=== PATIENT | female | born 1980 | race Caucasian/White ===

== ENCOUNTER 2019-10-31 10:57 | Inpatient (IN) | payer OTHER ==
--- NOTE | 2019-10-31 11:26 | PDOC ---
History of Present Illness - General Chief Complaint: Nausea/Vomiting Stated Complaint: FLU Time Seen by Provider: 10/31/19 11:21 History Source: Patient Exam Limitations: No Limitations - History of Present Illness Initial Comments: Marie Mason is an obese 39 yo F w a pmh of gastric bypass surgery who presents to the [facility] er with 12 hours of severe abdominal pain associated with multiple episodes of nausea and vomiting which she describes as green in color. The patient states her last bowel movement was 2 days ago which is abnormal for her as she usually has a bowel movement every day. The patient has not been able to keep anything down in the past 12 hours and whatever she tries to eat she throws up. Patient recently travelled from [place] to [place] yesterday. Denies fevers, chills, chest pain, SOB, difficulty breathing, diarhea, dysuria, frequency, urgency, back pain LMP: 2 weeks ago Recent travel: Travelled from [place] in the past 2 days. PCP: in [place] PSH: Gastric bypass Social Hx: Denies smoking, drinking, or other substance abuse Allergies: hydromorphone Past History - Past Medical History Allergies/Adverse Reactions: Allergies Allergy/AdvReac Type Severity Reaction Status Date / Time hydromorphone [From Dilaudid] Allergy Verified 10/31/19 11:38 Home Medications: Ambulatory Orders Fluoxetine HCl [Prozac] 40 mg PO DAILY 10/31/19 Levothyroxine Sodium 1 tab PO DAILY 10/31/19 Review of Systems - Review of Systems Able to Perform ROS?: Yes Comments:: CONSTITUTIONAL: Absent: fever, no chills, no fatigue EYES: Absent: visual changes ENT: Absent: ear pain, no sore throat CARDIOVASCULAR: Absent: chest pain, no palpitations RESPIRATORY: Absent: cough, no SOB GI: Present: Abdominal pain, nausea, vomiting Absent: no constipation, no diarrhea GENITOURINARY: Absent: dysuria, no frequency, no hematuria MUSKULOSKELETAL: Absent: back pain, no arthralgia, no myalgia SKIN: Absent: rash NEURO: Absent: headache *Physical Exam - Physical Exam GENERAL: Patient appears uncomfortable. Moderate apparent distress. HEENT: Normocephalic, atraumatic. PERRL, EOM intact. CARDIOVASCULAR: Normal S1, S2. Regular rate and rhythm. PULMONARY: No evidence of respiratory distress. Lungs clear to auscultation bilaterally. No wheezing, rales or rhonchi. ABDOMEN: There is epigastric and right sided generalized abdominal discomfort. Hyperactive bowel sounds diffusely. No rebound or guarding. Abdomen is overral soft and not peritoneal. EXTREMITIES: Normal ROM in all four extremities. No gross deformities. SKIN: Warm, dry. No rash NEUROLOGICAL: No focal neurological deficits. ED Treatment Course - LABORATORY CBC & Chemistry Diagram: 10/31/19 12:10 10/31/19 12:10 Medical Decision Making - Medical Decision Making Marie Mason is an obese 39 yo F w a pmh of gastric bypass surgery who presents to the [facility] er with 12 hours of severe abdominal pain associated with multiple episodes of nausea and vomiting which she describes as green in color. The patient states her last bowel movement was 2 days ago which is abnormal for her as she usually has a bowel movement every day. The patient has not been able to keep anything down in the past 12 hours and whatever she tries to eat she throws up. Patient recently travelled from [place] to [place] yesterday. Vital Signs Temp Pulse Resp BP Pulse Ox 98 F 72 18 119/74 100 10/31/19 11:34 10/31/19 11:34 10/31/19 11:34 10/31/19 11:34 10/31/19 11:34 DDx IBNLT: SBO, electrolyte/metabolic disturbance, less likely appendicitis, cholecystitis, pancreatitis, GERD/PUD Plan: Labs, Urine, EKG, POCUS, CTAP, analgesia, IV hydration, re-assess EKG: QTc prolonged at ~518 - Administering 2G Mag, will hold any QT prolonging agents. Ativan for nausea for the time being. POCUS: Patient appears to have an SBO as her small bowel is dilated larger than 3 cm in multiple regions and she has fluid pooling collections outside of her gut. Labs: Unremarkable, normal lactic acid Urine: 4+ ketonuria CTAP: Distal SBO Surgical Consult: Dr. noble is non profit director. I spoke with him and he said he is in the OR and I should give report to the surgical PA's Re-assessment: Patient informed of results - NG tube placed by me - IV hydration - I have paged the surgical PA service to come and evaluate the patient. Disposition: Med/Surg Discharge - Discharge Information Problems reviewed: Yes Clinical Impression/Diagnosis: SBO (small bowel obstruction) Condition: Stable - Admission Yes - Follow up/Referral - Patient Discharge Instructions - Post Discharge Activity
[2019-10-31] MEDS ORDERED: ACETAMINOPHEN 1000 MG/100 ML VIAL (NON FORMULARY) IVPB ONE (11:36)
[2019-10-31] MEDS ORDERED: SODIUM CHLORIDE 1,000 ML IV STA (11:36)
[2019-10-31] MEDS ORDERED: ONDANSETRON 4 MG/2 ML VIAL IVPUSH ONE (11:38)
[2019-10-31] MEDS ORDERED: ACETAMINOPHEN INJECTION 100 ML IVPB ONE (11:41)
[2019-10-31] MEDS ORDERED: ONDANSETRON 4 MG/2 ML VIAL ONE (11:41)
[2019-10-31] MEDS ORDERED: LORazepam 2 MG/ML SDV VIAL ONE ×2 (11:48→17:06)
[2019-10-31] MEDS ORDERED: MAGNESIUM SULF 50% (8.12 MEQ/2 ML-1 GM VIAL) IVPB ONE (11:49)
--- NOTE | 2019-10-31 11:57 | PDOC ---
Attending Attestation - Resident Resident Name: Vince Garcia - ED Attending Attestation I have performed the following: I have examined & evaluated the patient, The case was reviewed & discussed with the resident, I agree w/resident's findings & plan - HPI HPI: 10/31/19 11:53 39 YOF with h/o Gastric bypass p/w severe diffuse Abdominal pain x 12 hours, nausea and bilious emesis, unable to tolerate any PO intake. No BM x 2 days, usually regular and daily BM. no flatus. only gas/burping. Recent travel from [place], where she resides, here for work LMP 1 week ago. denies bloody stools, diarrhea. no f/c, dizziness/headache +mild cough. 10/31/19 16:41 11/01/19 12:55 - Physicial Exam PE: 10/31/19 11:54 Agree with the resident's HPI and PE as documented in the electronic medical record. in mild distress 2/2 pain, malaised appearing. EOMI, PERRL, nl conjunctiva, anicteric; dry mucus membranes, neck supple. lungs clear, RRR, abdomen soft obese, +diffuse/periumbilical TTP, +guarding. No rebound, no CVAT> Back nontender. MON x4, no focal neuro deficits. No peripheral edema. normal color for ethnicity, cool and moist skin 10/31/19 11:54 - Medical Decision Making 10/31/19 11:56 Vital Signs Temp Pulse Resp BP Pulse Ox 98 F 72 18 119/74 100 10/31/19 11:34 10/31/19 11:34 10/31/19 11:34 10/31/19 11:34 10/31/19 11:34 DDx abdominal pain: Renal colic, biliary colic, metabolic/electrolyte derangements. GERD, PUD, esophageal spasm, pancreatitis, hepatitis, constipation , colitis, gastroenteritis, cholecystitis, UTI, pyelonephritis, ileus, SBO, medication side effect, hernia, appendicitis, diverticulitis, mesenteric ischemia. msk strain, mesenteric adenitis, psoas abscess. Vital signs reviewed, afebrile, normotensive. Patient is uncomfortable appearing. We will give Ativan for her nausea/ vomiting. Unable to give QTc prolonging agents including most antiemetics. We will also hydrate with IV fluids, analgesia, Tylenol to start and reassess bedside POCUS exam of bowel done with 3.5cm dilated loops of small bowel ( confirmed with plica circularis), lack of peristalsis, to and fro sign, with local free fluid between layers of bowel. concern for SBO based on sono Concern for bowel obstruction will obtain CT abdomen pelvis, trial p.o. contrast for imaging to evaluate for obstruction given patient has not had bowel movements, no flatus, diffuse abdominal pain and prior surgeries., Will also keep in mind there could be infectious etiology inflammatory etiology. 10/31/19 15:29 CT confirms SBO, distally surgery cs with Dr Mendoza medication reconciliation technician - conservative management with bowel rest, NGT for now NPO/NGT. placed by resident. cxr initially poor quality. rpt done, which shows the NGT past the GE junction, but needs advancement another 10cm (has been advanced to 50-60cm already). low intermittent wall suction placed pt has felt improved with the treatment. admission 10/31/19 16:39 10/31/19 19:06 11/01/19 12:56 Heart Score/ECG Review #1 ECG reviewed & interpreted by me at: 11:45 General ECG Interpretation: Sinus Rhythm, Normal Rate, Normal Intervals 10/31/19 11:55 EKG normal sinus rhythm 66 bpm, Prolonged QTC at 517 [address] QRS, ST and T wave segments and morphology normal. Nonspecific T wave abnormalities 10/31/19 11:56
[2019-10-31] MEDS ORDERED: MAGNESIUM SULF 50% (8.12 MEQ/2 ML-1 GM VIAL) ONE (12:01)
[2019-10-31] MEDS ORDERED: FAMOTIDINE 20 MG/50 ML IVPB 20 MG/50 ML MG IVPB ONE (12:30)
[2019-10-31 12:36] LABS: BASO % 0.9 % (0-2.0); EOS % 0.4 % (0-4.5); HEMATOCRIT 41.5 % (32.4-45.2); HEMOGLOBIN 13.9 GM/dL (10.7-15.3); LYMPH % 8.3 % (8-40); MCH 30.1 pg (25.7-33.7); MCHC 33.4 g/dl (32.0-36.0); MEAN CELL VOLUME 90.1 fl (80-96); MEAN PLT VOLUME 8.1 fl (7.5-11.1); MONO % 8.6 % (3.8-10.2); NEUT % 81.8 % (42.8-82.8); PLATELET COUNT 243 K/MM3 (134-434); RBC 4.61 M/mm3 (3.60-5.2); RDW 13.6 % (11.6-15.6); WHITE BLOOD COUNT 7.1 K/mm3 (4.0-10.0)
[2019-10-31 12:52] LABS: INR 0.92 (0.83-1.09); PROTHROMBIN TIME (PATIENT) 10.8 SEC (9.7-13.0)
[2019-10-31 12:55] LABS: ACTIVATED PTT 34.7 SECONDS (25.2-36.5)
[2019-10-31 12:58] LABS: MAGNESIUM 1.7 mg/dL (1.8-2.4)
[2019-10-31 13:05] LABS: BILIRUBIN,TOTAL 0.5 mg/dL (0.2-1); BLOOD UREA NITROGEN 10.9 mg/dL (7-18); CALCIUM 9.2 mg/dL (8.5-10.1); CREATININE 0.7 mg/dL (0.55-1.3); PHOSPHOROUS 1.3 mg/dL (2.5-4.9); POTASSIUM 3.7 mmol/L (3.5-5.1); TOT PROT 6.5 g/dl (6.4-8.2)
[2019-10-31] MEDS ORDERED: SODIUM CHLORIDE 0.9% 500 ML INFUS.BAG IV ONE (13:50)
[2019-10-31 14:21] LABS: PH,URINE 7.5 (5.0-8.0); URINE APPEARANCE CLEAR; URINE BILIRUBIN NEGATIVE (NEGATIVE); URINE COLOR YELLOW; URINE GLUCOSE (UA) NEGATIVE (NEGATIVE); URINE KETONE 4+ (NEGATIVE); URINE LEUK ESTERASE NEGATIVE (NEGATIVE); URINE NITRITE NEGATIVE (NEGATIVE); URINE PROTEIN TRACE (NEGATIVE)
--- NOTE | 2019-10-31 14:46 | EKG ---
Test Reason : Blood Pressure : / mmHG Vent. Rate : 066 BPM Atrial Rate : 066 BPM P-R Int : 120 ms QRS Dur : 086 ms QT Int : 494 ms P-R-T Axes : 038 064 062 degrees QTc Int : 517 ms NORMAL SINUS RHYTHM PROLONGED QT ABNORMAL ECG NO PREVIOUS ECGS AVAILABLE Confirmed by MD TESSY, HIGINIO ([id number]) on 10/31/2019 2:45:41 PM Referred By: Confirmed By:HIGINIO STILL MD
[2019-10-31] MEDS ORDERED: LACTATED RINGERS SOLUTION 1,000 ML/1,000 ML INFUS.BAG IV SCH (15:30)
[2019-10-31] MEDS ORDERED: LIDOCAINE HCL 2% JELLY 10 ML CARTRIDGE ONE (17:26)
[2019-10-31] MEDS ORDERED: DEXTROSE 5%-NORMAL SALINE 1,000 ML IV SCH (18:30)
--- NOTE | 2019-10-31 19:33 | PN ---
Teaching Attending Note Name of Resident: Jay Hull ATTENDING PHYSICIAN STATEMENT I saw and evaluated the patient. I reviewed the resident's note and discussed the case with the resident. I agree with the resident's findings and plan as documented. SUBJECTIVE: Patient is a 39 year old woman with a PMH of Gastric bypass surgery, Depression and Hypothyroidism who presents to the ER with severe abdominal pain associated with multiple episodes of nausea and vomiting which she describes as green in color. The patient states her last bowel movement was 2 days ago which is abnormal for her as she usually has a bowel movement every day. The patient has not been able to keep anything down in the past 12 hours and whatever she tries to eat she throws up. Patient recently travelled from [place] to [place] yesterday. Denies fevers, chills, chest pain, SOB, difficulty breathing, diarhea , dysuria, frequency, urgency, back pain or headache. Her LMP was 2 weeks ago. Denies alcohol, tobacco or illicit drug use. No sick contacts. Has FH of [place]. OBJECTIVE: Alert Vital Signs Period Temp Pulse Resp BP Sys/Faust Pulse Ox Last 24 Hr 98 F-98.4 F 68-87 18-18 94-119/55-74 98-100 HEENT: No Jaundice, eye redness or discharge, PERRLA, EOMI. Normocephalic, atraumatic. External ears are normal and hearing is grossly intact. No nasal discharge. Neck: Supple, nontender. No palpable adenopathy or thyromegaly. No JVD Chest: Good effort. Clear to auscultation and percussion. Heart: Regular. No S3, rub or murmur Abdomen: Not distended, soft, tender epigastrium, RUQ and RLQ; no HSM. No rebound or guarding. Hypoactive bowel sounds. Ext: Peripheral pulses intact. No leg edema. Skin: Warm and dry. No petechiae, rash or ecchymosis. Neuro: Alert. Oriented x3. CN 2-12 grossly intact. Sensation grossly intact in all four extremities and DTR are symmetric. Psych: Appropriate mood and affect. Good insight. Current Medications Generic Name Dose Route Start Last Admin Trade Name Freq PRN Reason Stop Dose Admin Lactated Ringer's 1,000 ml in 1,000 mls @ 100 mls/hr 10/31/19 15:30 10/31/19 18:11 Lactated Ringers Solution IV 100 mls/hr [facility] Administration Dextrose/Sodium Chloride 1,000 mls @ 100 mls/hr 10/31/19 18:30 D5-Ns - IV [facility] Home Medications Medication Instructions Recorded Fluoxetine HCl [Prozac] 40 mg PO DAILY 10/31/19 Levothyroxine Sodium 1 tab PO DAILY 10/31/19 Abnormal Lab Results 10/31/19 10/31/19 10/31/19 12:10 12:10 13:43 Chloride 109 H Carbon Dioxide 20 L Random Glucose 155 H Phosphorus 1.3 L Magnesium 1.7 L Ur Specific [place] 1.038 H Urine Ketones 4+ H ASSESSMENT AND PLAN: 1. Small bowel obstruction - CT abdomen/pelvis with IV contrast showed distal small bowel obstruction and cholelithiasis. Patient being kept NPO and Surgery consulted. Being treated with IV D5NS. Will give Neutraphos, IV MgSO4 and check HbA1c. No acute abnormality on CXR and EKG shows NSR at 66/minute and prolonged QTc. Will avoid Zofran. Will continue comprehensive care for all of patients comorbid conditions including Levothyroxine for hypothyroidism and Prozac for depression. 2. Obesity Counseled on the risks associated with obesity. Will provide patient all the necessary assistance, counseling and positive reinforcement to facilitate weight loss. Consult human resources benefits specialist. 3. DVT prophylaxis - Lovenox 40 mg SQ q 24 hours. 4. Advance directives - Full code
--- NOTE | 2019-10-31 20:42 | HP ---
CHIEF COMPLAINT: Abdominal pain with emesis PCP: From [place] HISTORY OF PRESENT ILLNESS: 39F PMH hypothyroidism, depression who presents with abdominal pain and multiple episodes of emesis that began in the morning today. She woke up and began having pain in the epigastric region, non radiating, 10/10 and shortly afterwards began having bilious emesis. She approximates that she has vomited >20 times, however she last had an episode of emesis 2 hours ago. She endorses passing flatus. She had a meal of tacos and protein bar last night; however no one she had her meal with had similar symptoms. She felt subjective fever and chills in the morning, and notes that she has had a productive cough since yesterday morning. She had a gastric bypass surgery in November 2018, and is originally from [place]; she is in [place] for a work trip. She currently denies any abdominal pain, nausea, chest pain, shortness of breath, dysuria and hemturia. ER course was notable for: (1) EKG was completed showed QTc of 511. Ativan was given to control nausea (2) CTA/P showed: Multiple dilated small bowel loops are seen within the upper abdomen and pelvis with a 3.4 cm maximum luminal diameter. There is also a somewhat more dilated small bowel loopwith adjacent surgical sutures within the left upper quadrant with a 5 cm diameter. Perigastric surgical sutures are also visualized. The terminal ileum appears unremarkable in caliber. No gross obstructing lesion is identified. There is mild fluid filled distention of the ascending colon. The appendix appears to be partially visualized and demonstrates no gross abnormality. No obvious indirect CT signs of acute appendicitis are noted. Findings suggestive of distal SBO. (3) NG tube placed and advanced. Recent Travel: [place] for work- was in [place] last week, [place] (home) this weekend. PAST MEDICAL HISTORY: hypothyroidism, depression FAMILY MEDICAL HISTORY: CAD and NV on both sides of family PAST SURGICAL HISTORY: Gastric Bypass 11/2018 Social History: Smokin pack year history. 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. Visiting [place] for work. Allergies hydromorphone [From Dilaudid] Allergy (Verified 10/31/19 11:38) HOME MEDICATIONS: Home Medications Medication Instructions Recorded Fluoxetine HCl [Prozac] 40 mg PO DAILY 10/31/19 Levothyroxine Sodium 1 tab PO DAILY 10/31/19 REVIEW OF SYSTEMS CONSTITUTIONAL: Present: fever, chills, Absent: diaphoresis, generalized weakness, malaise, loss of appetite, weight change HEENT: Absent: rhinorrhea, nasal congestion, throat pain, throat swelling, difficulty swallowing, mouth swelling, ear pain, eye pain, visual changes CARDIOVASCULAR: Absent: chest pain, syncope, palpitations, irregular heart rate, lighthead edness, peripheral edema RESPIRATORY: Present: cough Absent: shortness of breath, dyspnea with exertion, orthopnea, wheezing, stridor, hemoptysis GASTROINTESTINAL: Present: abdominal pain, nausea, vomiting, constipation Absent: abdominal distension, diarrhea, melena, hematochezia GENITOURINARY: Absent: dysuria, frequency, urgency, hesitancy, hematuria, flank pain, genital pain MUSCULOSKELETAL: Absent: myalgia, arthralgia, joint swelling, back pain, neck pain SKIN: Absent: rash, itching, pallor HEMATOLOGIC/IMMUNOLOGIC: Absent: easy bleeding, easy bruising, lymphadenopathy, frequent infections ENDOCRINE: Absent: unexplained weight gain, unexplained weight loss, heat intolerance, cold intolerance NEUROLOGIC: Absent: headache, focal weakness or paresthesias, dizziness, unsteady gait, seizure, mental status changes, bladder or bowel incontinence PSYCHIATRIC: Absent: anxiety, depression, suicidal or homicidal ideation, hallucinations. PHYSICAL EXAMINATION Vital Signs - 24 hr 10/31/19 10/31/19 10/31/19 11:34 12:00 15:00 Temperature 98 F Pulse Rate 72 Pulse Rate [ 68 74 Apical] Respiratory 18 18 18 Rate Blood Pressure 119/74 Blood Pressure 109/72 95/55 L [Left Arm] O2 Sat by Pulse 100 98 98 Oximetry (%) 10/31/19 10/31/19 10/31/19 17:04 17:25 19:44 Temperature 98.4 F 98.2 F 99.2 F Pulse Rate Pulse Rate [ 87 74 99 H Apical] Respiratory 18 20 Rate Blood Pressure Blood Pressure 94/64 100/61 111/40 L [Left Arm] O2 Sat by Pulse 99 98 97 Oximetry (%) 10/31/19 20:24 Temperature 100.2 F H Pulse Rate Pulse Rate [ Apical] Respiratory Rate Blood Pressure Blood Pressure [Left Arm] O2 Sat by Pulse Oximetry (%) GENERAL: Awake, alert, and fully oriented, in no acute distress. HEAD: Normal with no signs of trauma. EYES: Pupils equal, round and reactive to light, extraocular movements intact, sclera anicteric, conjunctiva clear. EARS, NOSE, THROAT:NG tube in place. LUNGS: Breath sounds equal, clear to auscultation bilaterally. No wheezes, and no crackles. HEART: Regular rate and rhythm, normal S1 and S2 without murmur, rub or gallop. ABDOMEN: Tender to palpation, hypoactive bowel sounds, non distended. no guarding or rebound tenderness UPPER EXTREMITIES: 2+ pulses, warm, well-perfused. No cyanosis. No clubbing. No peripheral edema. LOWER EXTREMITIES: 2+ pulses, warm, well-perfused. No calf tenderness. No peripheral edema. NEUROLOGICAL: Cranial nerves II-XII intact. Normal speech. Normal gait. PSYCHIATRIC: Cooperative. Good eye contact. Appropriate mood and affect. SKIN: Warm, dry, normal turgor, no rashes or lesions noted, normal capillary refill. Laboratory Results - last 24 hr 10/31/19 10/31/19 10/31/19 12:10 12:10 12:10 WBC 7.1 RBC 4.61 Hgb 13.9 Hct 41.5 MCV 90.1 MCH 30.1 MCHC 33.4 RDW 13.6 Plt Count 243 MPV 8.1 Absolute Neuts (auto) 5.8 Neutrophils % 81.8 Lymphocytes % 8.3 Monocytes % 8.6 Eosinophils % 0.4 Basophils % 0.9 Nucleated RBC % 0 PT with INR INR PTT (Actin FS) Sodium 141 Potassium 3.7 Chloride 109 H Carbon Dioxide 20 L Anion Gap 12 BUN 10.9 Creatinine 0.7 Est GFR (CKD-EPI)AfAm 124.73 Est GFR (CKD-EPI)NonAf 107.62 Random Glucose 155 H Lactic Acid Calcium 9.2 Phosphorus 1.3 L Magnesium 1.7 L Total Bilirubin 0.5 AST 35 ALT 41 Alkaline Phosphatase 63 Total Protein 6.5 Albumin 4.0 Lipase 173 Serum , Qual Urine Color Urine Appearance Urine pH Ur Specific [place] Urine Protein Urine Glucose (UA) Urine Ketones Urine Blood Urine Nitrite Urine Bilirubin Urine Urobilinogen Ur Leukocyte Esterase Urine HCG, Qual Blood Type Antibody Screen 10/31/19 10/31/19 10/31/19 12:10 12:10 12:26 WBC RBC Hgb Hct MCV MCH MCHC RDW Plt Count MPV Absolute Neuts (auto) Neutrophils % Lymphocytes % Monocytes % Eosinophils % Basophils % Nucleated RBC % PT with INR 10.80 INR 0.92 PTT (Actin FS) 34.7 Sodium Potassium Chloride Carbon Dioxide Anion Gap BUN Creatinine Est GFR (CKD-EPI)AfAm Est GFR (CKD-EPI)NonAf Random Glucose Lactic Acid Calcium Phosphorus Magnesium Total Bilirubin AST ALT Alkaline Phosphatase Total Protein Albumin Lipase Serum , Qual Negative Urine Color Urine Appearance Urine pH Ur Specific [place] Urine Protein Urine Glucose (UA) Urine Ketones Urine Blood Urine Nitrite Urine Bilirubin Urine Urobilinogen Ur Leukocyte Esterase Urine HCG, Qual Blood Type B POSITIVE Antibody Screen Negative 10/31/19 10/31/19 10/31/19 12:30 13:43 13:43 WBC RBC Hgb Hct MCV MCH MCHC RDW Plt Count MPV Absolute Neuts (auto) Neutrophils % Lymphocytes % Monocytes % Eosinophils % Basophils % Nucleated RBC % PT with INR INR PTT (Actin FS) Sodium Potassium Chloride Carbon Dioxide Anion Gap BUN Creatinine Est GFR (CKD-EPI)AfAm Est GFR (CKD-EPI)NonAf Random Glucose Lactic Acid 1.4 Calcium Phosphorus Magnesium Total Bilirubin AST ALT Alkaline Phosphatase Total Protein Albumin Lipase Serum , Qual Urine Color Yellow Urine Appearance Clear Urine pH 7.5 Ur Specific [place] 1.038 H Urine Protein Trace Urine Glucose (UA) Negative Urine Ketones 4+ H Urine Blood Negative Urine Nitrite Negative Urine Bilirubin Negative Urine Urobilinogen 1.0 Ur Leukocyte Esterase Negative Urine HCG, Qual Negative Blood Type Antibody Screen ASSESSMENT/PLAN: 39F PMH hypothyroidism, depression who presents with Small bowel obstruction. 1. SBO -CT Abdomen pelvis shows multiple dilated small bowel loops are seen within the upper abdomen and pelvis with a 3.4 cm maximum luminal diameter. There is also a somewhat more dilated small bowel loopwith adjacent surgical sutures within the left upper quadrant with a 5 cm diameter. Perigastric surgical sutures are also visualized. The terminal ileum appears unremarkable in caliber. No gross obstructing lesion is identified. There is mild fluid filled distention of the ascending colon. The appendix appears to be partially visualized and demonstrates no gross abnormality. No obvious indirect CT signs of acute appendicitis are noted. Findings suggestive of distal SBO. - No episodes of emesis since 4pm. 1 large bowel movement and flatus in the ED. - NG tube in place. - NPO - Reglan 5 mg Q8H as last resort for anti-emesis. Discussed with pharmacy in regards to QTc prolongation- minimal effects. - D5NS @ 100 ml/hr - Surgery consulted- Dr. Joe ahuja. Spoke with him regarding management of patient, he will see her in the AM. 2. Hypomagnesiema and Hypophosphatemia - Initial Mag 1.7. Repleted in the ED. Currently 2.1 - Intial Phos 1.3. Repeat Phos 3.4 - Trend Mag/Phos - 3. Hx of Hypothyroidism - Continuing IV Levothyroxine. Home dose of 0.137 mcg PO. DVT Prophylaxis: Lovenox 40 mg SQ F: NS @ 100 ml/hr E: Trend Mag/Phos N: NPO Dispo: Admitted to med/surg Visit type - Emergency Visit Emergency Visit: Yes ED Registration Date: 10/31/19 Care time: The patient presented to the Emergency Department on the above date and was hospitalized for further evaluation of their emergent condition. - New Patient This patient is new to me today: Yes Date on this admission: 10/31/19 - Critical Care Critical Care patient: No ATTENDING PHYSICIAN STATEMENT I saw and evaluated the patient. I reviewed the resident's note and discussed the case with the resident. I agree with the resident's findings and plan as documented. SUBJECTIVE: OBJECTIVE: ASSESSMENT AND PLAN:
[2019-10-31 20:55] LABS: BASO % 0.4 % (0-2.0); EOS % 0.1 % (0-4.5); HEMATOCRIT 34.5 % (32.4-45.2); HEMOGLOBIN 11.5 GM/dL (10.7-15.3); MCH 30.1 pg (25.7-33.7); MCHC 33.4 g/dl (32.0-36.0); MEAN CELL VOLUME 90.3 fl (80-96); MEAN PLT VOLUME 7.5 fl (7.5-11.1); MONO % 15.7 % (3.8-10.2); NEUT % 69.8 % (42.8-82.8); PLATELET COUNT 221 K/MM3 (134-434); RBC 3.82 M/mm3 (3.60-5.2); WHITE BLOOD COUNT 7.8 K/mm3 (4.0-10.0)
[2019-10-31] MEDS: DEXTROSE 5%-NORMAL SALINE 1,000 ML IV SCH ×2 (20:55→23:18)
[2019-10-31 21:22] LABS: ALBUMIN 3.2 g/dl (3.4-5.0); BILIRUBIN,TOTAL 0.2 mg/dL (0.2-1); BLOOD UREA NITROGEN 8.5 mg/dL (7-18); CREATININE 0.5 mg/dL (0.55-1.3); MAGNESIUM 2.1 mg/dL (1.8-2.4); PHOSPHOROUS 3.4 mg/dL (2.5-4.9); POTASSIUM 3.8 mmol/L (3.5-5.1); TOT PROT 5.4 g/dl (6.4-8.2)
[2019-10-31] MEDS ORDERED: METOCLOPRAMIDE HCL INJECTION 10 MG/2 ML VIAL IVPUSH PRN (23:35)
[2019-11-01] MEDS ORDERED: ACETAMINOPHEN 1000 MG/100 ML VIAL (NON FORMULARY) IVPB ONE ×3 (01:36→21:43)
[2019-11-01 03:11] VITALS: BMI 34.5
[2019-11-01] MEDS ORDERED: PROCHLORPERAZINE INJECTION 10 MG/2 ML VIAL IVPB PRN (07:47)
--- NOTE | 2019-11-01 07:51 | CONSULT ---
- Consultation REQUESTING PROVIDER: General Surgery - Gregorio Mendoza CONSULT REQUEST: We have been asked to surgically evaluate this patient for abd pain PCP: Carlitos Brasher HPI: Called to eval 39 yo female w/ PMHx as noted below. States she awoke yestday around 6AM with 10/10 abd pain with associated nausea and vomiting (billious). BIBA to [facility] ED for further evaluation. States her pain started (points to) suprapubic region. Migrated towards her umbilical region. Pertinent PSHx to include Laprascopic Gastric Bypass ([place]; Dr. Huan Lr December 07, 2018) and Laprascopic bilateral Ovarian cystectomy 2007. States she has never experienced this before. Tried to quell her discomfort with Tums without success. Per medical charting, her N/V resolved around 4PM and is passing flatus and had a large BM in the ER. Denies any hematuria, dysuria or change in urine color. Denies melana or hematochazia. Denies any abd wall hernias. Denies trauma. CT Abd/Pelvis: multiple dilated SB loops w/i upper abd and pelvis. Dilated SB loop with adjacent surgical sutures within the LUQ. Perigastric surgical sutures are also visualized. The terminal ileum appears unremarkable in caliber. No gross obstructing lesion is identified. There is mild fluid filled distention of the ascending colon. The appendix appears unremarkable. PMHx: Hypothyroidism Depression Obesity PSHx: Laprascopic Gastric Bypass ([place]; Dr. Huan Lr December 07, 2018) Laprascopic bilateral Ovarian cystectomy 2007. Home Meds Prozac 80 mg PO daily Levothyroxine 1 tab PO daily Allergies: Hydromorphone [From Dilaudid] ROS: 12 systems reviewed and considered negative except for what's contained in her HPI. PE: GENERAL: A&O. NAD HEAD: NC. AT. EYES: PERRL, sclera anicteric, conjunctiva clear. ENT: NGT on wall suction NECK: Normal ROM, supple without lymphadenopathy, JVD, or masses. LUNGS: CTA bilat HEART: RRR ABD: Obese habitus. Soft. Mild periumbilical to deep palpation only. Old laprasc opic surgical ports/scars well healed. No palpable hernias. hypoactive bowel sounds, no guarding, no rebound, no masses MUSCULOSKELETAL: No CVAT bilat UE: 2+ pulses, warm, well-perfused. No cyanosis. Cap refill <2 seconds. No peripheral edema. LE: 2+ pulses, warm, well-perfused. No calf tenderness. No peripheral edema. NEUROLOGICAL: Normal speech, gait not observed. PSYCH: Cooperative. Good eye contact. Appropriate mood and affect. SKIN: Warm, dry, normal turgor, no rashes or lesions noted Last Vital Signs Temp Pulse Resp BP Pulse Ox 99.5 F 99 H 18 117/78 95 11/01/19 06:00 11/01/19 06:00 11/01/19 06:00 11/01/19 06:00 10/31/19 22:00 CBC, BMP 10/31/19 20:40 10/31/19 20:40 Blood Type Blood Type B POSITIVE 10/31/19 12:10 INR, PTT INR 0.92 (0.83-1.09) 10/31/19 12:10 Urine Test Results Urine Color Yellow 10/31/19 13:43 Urine Appearance Clear 10/31/19 13:43 Urine pH 7.5 (5.0-8.0) 10/31/19 13:43 Ur Specific [place] 1.038 (1.010-1.035) H 10/31/19 13:43 Urine Protein Trace (NEGATIVE) 10/31/19 13:43 Urine Glucose (UA) Negative (NEGATIVE) 10/31/19 13:43 Urine Ketones 4+ (NEGATIVE) H 10/31/19 13:43 Urine Blood Negative (NEGATIVE) 10/31/19 13:43 Urine Nitrite Negative (NEGATIVE) 10/31/19 13:43 Urine Bilirubin Negative (NEGATIVE) 10/31/19 13:43 Ur Leukocyte Esterase Negative (NEGATIVE) 10/31/19 13:43 Hepatic Panel Total Bilirubin 0.2 mg/dL (0.2-1) 10/31/19 20:40 AST 28 U/L (15-37) 10/31/19 20:40 ALT 31 U/L (13-61) 10/31/19 20:40 Alkaline Phosphatase 49 U/L (45-117) 10/31/19 20:40 Albumin 3.2 g/dl (3.4-5.0) L 10/31/19 20:40 Problem List - Problems (1) SBO (small bowel obstruction) Assessment/Plan: 39 yo female admitted with abd pain. CT abd/pelvis identifies multiple dilated SB loops w/i upper abd and pelvis. Dilated SB loop with adjacent surgical sutures within the LUQ. There is mild fluid filled distention of the ascending colon. The appendix appears unremarkable. She is passing flatus and had a large BM in the ED yesterday. Non-toxic appearing. -NPO -NGT to intermittent LWCS -OOB and ambulate -Serial ABD exams -Replete elytes PRN -f/u AXR (ordered) -Possible dc ngt -Cont conservative management at this time -Above plan discussed with Dr. Mendoza and agrees. -Surgery Team to continue following Code(s): K56.609 - UNSP INTESTNL OBST, UNSP TO PARTIAL VERSUS COMPLETE OBST (2) Hypothyroidism Code(s): E03.9 - HYPOTHYROIDISM, UNSPECIFIED (3) Obesity (BMI 30-39.9) Code(s): E66.9 - OBESITY, UNSPECIFIED Visit type - Case Type Case Type: ED Admission - Emergency Emergency Visit: Yes ED Registration Date: 10/31/19 Care time: The patient presented to the Emergency Department on the above date and was hospitalized for further evaluation of their emergent condition. - New patient This patient is new to me today: Yes Date on this admission: 11/01/19
[2019-11-01 09:27] LABS: BASO % 0.6 % (0-2.0); EOS % 0.6 % (0-4.5); HEMATOCRIT 34.1 % (32.4-45.2); HEMOGLOBIN 11.5 GM/dL (10.7-15.3); LYMPH % 18.6 % (8-40); MCH 30.5 pg (25.7-33.7); MCHC 33.7 g/dl (32.0-36.0); MEAN CELL VOLUME 90.4 fl (80-96); MEAN PLT VOLUME 8.4 fl (7.5-11.1); MONO % 11.4 % (3.8-10.2); NEUT % 68.8 % (42.8-82.8); PLATELET COUNT 211 K/MM3 (134-434); RBC 3.78 M/mm3 (3.60-5.2); RDW 14.1 % (11.6-15.6); WHITE BLOOD COUNT 5.7 K/mm3 (4.0-10.0)
[2019-11-01] MEDS ORDERED: PT OWN MED DRAWER 7, Y5N ONE (09:37)
[2019-11-01] MEDS: ENOXAPARIN NA (PORCINE) 40 MG/0.4 ML DISP.SYRIN SQ SCH (09:45)
[2019-11-01 10:00] LABS: CREATININE 0.5 mg/dL (0.55-1.3); MAGNESIUM 1.8 mg/dL (1.8-2.4)
[2019-11-01] MEDS ORDERED: LEVOTHYROXINE SODIUM 100 MCG VIAL IVPUSH SCH (10:00)
--- NOTE | 2019-11-01 10:50 | EKG ---
Test Reason : Blood Pressure : / mmHG Vent. Rate : 091 BPM Atrial Rate : 091 BPM P-R Int : 104 ms QRS Dur : 080 ms QT Int : 380 ms P-R-T Axes : 042 064 041 degrees QTc Int : 467 ms SINUS RHYTHM WITH SHORT NV OTHERWISE NORMAL ECG WHEN COMPARED WITH ECG OF 31-OCT-2019 11:43, NO SIGNIFICANT CHANGE WAS FOUND Confirmed by Jose Zaman ([id number]) on 11/01/2019 10:49:59 AM Referred By: VERENA POLO Confirmed By:Jose Zaman
[2019-11-01] MEDS: DEXTROSE 5%-NORMAL SALINE 1,000 ML IV SCH ×2 (12:33→20:52)
[2019-11-01] MEDS: BENZOCAINE/MENTH/CETYLPYRD CL 1 EACH LOZENGE MM PRN ×2 (13:24→16:04)
[2019-11-01] MEDS: ACETAMINOPHEN 325 MG TABLET (FP) PO PRN (16:35)
--- NOTE | 2019-11-01 16:56 | PN ---
Teaching Attending Note Name of Resident: Navdeep Morrissey ATTENDING PHYSICIAN STATEMENT I saw and evaluated the patient. I reviewed the resident's note and discussed the case with the resident. I agree with the resident's findings and plan as documented. SUBJECTIVE: seen around 11 am . no N/v. felt better than before. had a BM last night. vomited last night but not today. had sore throat on both sides that started after admission and NGT insertion . has MALDONADO that's typical for her migraines. Abd pain has much improved OBJECTIVE: NAD, awake, alert, pleasant and cooperative NJT in . oropharynx with erythema and slightly enlarged tonsils. no exudate seen. No Lymphadenopathy in neck. no TTP over paraspinal muscles inneck. round equal pupils, reactive to light . CV: RRR, no MRG Lungs: CTAB Abd: soft, ND, Nl BS, slightly tender in suprapubic area and RLQ and LLQ. EXt: No edema or erythema on upper or lower extremities ASSESSMENT AND PLAN: 39 y/o lady with h/o Anxiety , hypothyroidism, and gastric sleeve sx who presented with Abd pain. N/V and was found to have distal SBO. 1- SBO: already improved . passed flatus and BM. nausea resolved. KUB reviewed. case was d/w Vince, surgical PA. dc NGT and start clears. monitor on current diet cont IVF change zofran to compazine . EKG reviewed. sore throat is likely due to vomiting , and NGT in place. send strep and flu swabs . low grade fever ( 100.2) this afternoon is to be monitored. cxray and UA are not revealing. cx sent. monitor 2- h/o Hypothyroidism: cont IV synthroid dispo: HLOC
[2019-11-01] MEDS ORDERED: OSELTAMIVIR PHOSPHATE 75 MG CAPSULE PO ONE (17:54)
--- NOTE | 2019-11-01 20:56 | PN ---
Physical Exam: SUBJECTIVE: Patient seen and examined at bedside. pt states she is having L sided neck pain, headache and that her throat hurts. also complains of a productive cough OBJECTIVE: Vital Signs Period Temp Pulse Resp BP Sys/Faust Pulse Ox Last 24 Hr 98 F-100.6 F 75-108 18-20 104-117/43-78 95 GENERAL: The patient is awake, alert, and fully oriented, in no acute distress. HEAD: Normal with no signs of trauma. EYES: PERRL, extraocular movements intact ENT:posterior pharynx erythematous NECK: Trachea midline, full range of motion, supple. LUNGS: Breath sounds equal, clear to auscultation bilaterally, no accessory muscle use. HEART: Regular rate and rhythm, S1, S2 without murmur, rub or gallop. ABDOMEN: Soft, nontender, nondistended, normoactive bowel sounds, no guarding EXTREMITIES: 2+ pulses, warm, well-perfused, no edema. SKIN: Warm, dry, normal turgor, no rashes or lesions noted Laboratory Results - last 24 hr 10/31/19 10/31/19 11/01/19 20:40 20:40 06:06 WBC 7.8 RBC 3.82 Hgb 11.5 Hct 34.5 D MCV 90.3 MCH 30.1 MCHC 33.4 RDW 14.0 Plt Count 221 MPV 7.5 Absolute Neuts (auto) 5.4 Neutrophils % 69.8 Lymphocytes % 14.0 D Monocytes % 15.7 H D Eosinophils % 0.1 Basophils % 0.4 Nucleated RBC % 0 Sodium 141 Potassium 3.8 Chloride 112 H Carbon Dioxide 23 Anion Gap 5 L BUN 8.5 Creatinine 0.5 L Est GFR (CKD-EPI)AfAm 139.33 Est GFR (CKD-EPI)NonAf 120.22 POC Glucometer 99 Random Glucose 112 H Calcium 8.0 L Phosphorus 3.4 Magnesium 2.1 Total Bilirubin 0.2 AST 28 ALT 31 Alkaline Phosphatase 49 Total Protein 5.4 L Albumin 3.2 L Influenza A (Rapid) Influenza B (Rapid) Group A Strep Rapid 11/01/19 11/01/19 11/01/19 08:05 08:05 10:03 WBC 5.7 RBC 3.78 Hgb 11.5 Hct 34.1 MCV 90.4 MCH 30.5 MCHC 33.7 RDW 14.1 Plt Count 211 MPV 8.4 D Absolute Neuts (auto) 3.9 Neutrophils % 68.8 Lymphocytes % 18.6 D Monocytes % 11.4 H Eosinophils % 0.6 D Basophils % 0.6 Nucleated RBC % 0 Sodium 142 Potassium 4.0 Chloride 113 H Carbon Dioxide 24 Anion Gap 5 L BUN 6.0 L Creatinine 0.5 L Est GFR (CKD-EPI)AfAm 139.33 Est GFR (CKD-EPI)NonAf 120.22 POC Glucometer Random Glucose 100 Calcium 8.0 L Phosphorus 3.0 Magnesium 1.8 Total Bilirubin AST ALT Alkaline Phosphatase Total Protein Albumin Influenza A (Rapid) Influenza B (Rapid) Group A Strep Rapid Negative 11/01/19 16:00 WBC RBC Hgb Hct MCV MCH MCHC RDW Plt Count MPV Absolute Neuts (auto) Neutrophils % Lymphocytes % Monocytes % Eosinophils % Basophils % Nucleated RBC % Sodium Potassium Chloride Carbon Dioxide Anion Gap BUN Creatinine Est GFR (CKD-EPI)AfAm Est GFR (CKD-EPI)NonAf POC Glucometer Random Glucose Calcium Phosphorus Magnesium Total Bilirubin AST ALT Alkaline Phosphatase Total Protein Albumin Influenza A (Rapid) Positive A Influenza B (Rapid) Negative Group A Strep Rapid Current Medications Acetaminophen (Tylenol -) 650 mg PO Q6H PRN PRN Reason: Fever Or Pain Last Admin: 11/01/19 16:35 Dose: 650 mg Benzocaine/Menthol (Cepacol Lozenge -) 1 each MM PRN PRN PRN Reason: SORE THROAT Last Admin: 11/01/19 16:04 Dose: 1 each Enoxaparin Sodium (Lovenox -) 40 mg SQ DAILY [facility] Last Admin: 11/01/19 09:45 Dose: 40 mg Dextrose/Sodium Chloride (D5-Ns -) 1,000 mls @ 100 mls/hr IV ASDIR JARET Last Admin: 11/01/19 20:52 Dose: Not Given Levothyroxine Sodium (Synthroid Injection -) 68.5 mcg IVPUSH DAILY [facility] Last Admin: 11/01/19 09:45 Dose: 68.5 mcg Oseltamivir Phosphate (Tamiflu -) 75 mg PO BID [facility] Stop: 11/07/19 09:59 Prochlorperazine Edisylate (Compazine Injection -) 10 mg IVPB Q4H PRN PRN Reason: NAUSEA AND/OR VOMITING ASSESSMENT/PLAN: 39F PMH hypothyroidism, depression who presents to ED with abdominal pain, n/v. pt admitted for Small bowel obstruction. SBO -CT Abdomen pelvis shows multiple dilated small bowel loops are seen within the upper abdomen and pelvis with a 3.4 cm maximum luminal diameter. There is also a somewhat more dilated small bowel loopwith adjacent surgical sutures within the left upper quadrant with a 5 cm diameter. Perigastric surgical sutures are also visualized. The terminal ileum appears unremarkable in caliber. No gross obstructing lesion is identified. There is mild fluid filled distention of the ascending colon. The appendix appears to be partially visualized and demonstrates no gross abnormality. No obvious indirect CT signs of acute appendicitis are noted. Findings suggestive of distal SBO. - s/p NGT, IVF - XRays show improvement - tolerated clears today, advance as tolerated - Surgery consulted- Dr. Diaz Influenza - c/w IVF - Tamiflu - tylenol Hx of Hypothyroidism - continue home dose of synthroid DVT Prophylaxis: Lovenox 40 mg SQ Dispo: med/surg Visit type - Emergency Visit Emergency Visit: No - New Patient This patient is new to me today: No - Critical Care Critical Care patient: No - Discharge Referral Referred to [facility] Med P.C.: No ATTENDING PHYSICIAN STATEMENT I saw and evaluated the patient. I reviewed the resident's note and discussed the case with the resident. I agree with the resident's findings and plan as documented. SUBJECTIVE: OBJECTIVE: ASSESSMENT AND PLAN:
--- NOTE | 2019-11-01 20:57 | PN ---
Progress Note (short form) - Note Progress Note: 39 yr old female with partial SBo resolving with NGT decompression NGT removed Xrays improved Advance diet as tolerated
[2019-11-02] MEDS: DEXTROSE 5%-NORMAL SALINE 1,000 ML IV SCH ×2 (00:26→18:07)
[2019-11-02] MEDS ORDERED: LEVOTHYROXINE NA 25 MCG TABLET (FP) ONE (06:18)
[2019-11-02] MEDS ORDERED: LEVOTHYROXINE NA 112 MCG TABLET (FP) ONE (06:18)
[2019-11-02] MEDS: LEVOTHYROXINE 112 MCG, LEVOTHYROXINE 25 MCG PO SCH (06:23)
[2019-11-02 08:07] LABS: HEMOGLOBIN 11.5 GM/dL (10.7-15.3); MCH 30.7 pg (25.7-33.7); MEAN CELL VOLUME 90.3 fl (80-96); MEAN PLT VOLUME 8.4 fl (7.5-11.1); PLATELET COUNT 180 K/MM3 (134-434); RBC 3.77 M/mm3 (3.60-5.2); WHITE BLOOD COUNT 4.2 K/mm3 (4.0-10.0)
[2019-11-02 08:35] LABS: ALBUMIN 3.2 g/dl (3.4-5.0); BILIRUBIN,TOTAL 0.3 mg/dL (0.2-1); BLOOD UREA NITROGEN 3.2 mg/dL (7-18); CALCIUM 8.1 mg/dL (8.5-10.1); CREATININE 0.6 mg/dL (0.55-1.3); MAGNESIUM 1.9 mg/dL (1.8-2.4); PHOSPHOROUS 3.3 mg/dL (2.5-4.9); POTASSIUM 3.2 mmol/L (3.5-5.1); TOT PROT 5.6 g/dl (6.4-8.2)
[2019-11-02] MEDS ORDERED: ACETAMINOPHEN 1000 MG/100 ML VIAL (NON FORMULARY) IVPB ONE (09:21)
[2019-11-02] MEDS ORDERED: PT OWN MED DRAWER 7, Y5N ONE ×2 (09:33→21:04)
[2019-11-02] MEDS ORDERED: LEVOTHYROXINE SODIUM PO SCH (10:00)
[2019-11-02] MEDS: ENOXAPARIN NA (PORCINE) 40 MG/0.4 ML DISP.SYRIN SQ SCH (10:25)
[2019-11-02] MEDS: OSELTAMIVIR PHOSPHATE 75 MG CAPSULE PO SCH ×2 (10:26→23:16)
[2019-11-02] MEDS: KCL 10 MEQ IVPB 10 MEQ/100 ML INFUS.BAG IVPB SCH ×3 (11:48→18:07)
--- NOTE | 2019-11-02 15:22 | PN ---
Physical Exam: SUBJECTIVE: Patient seen and examined at bedside. pt states she was doing well. began feeling nauseas with lunch. flu symptoms are improving OBJECTIVE: Vital Signs Period Temp Pulse Resp BP Sys/Faust Pulse Ox Last 24 Hr 98.8 F-100.6 F 67-88 20-20 101-119/64-74 95-98 GENERAL: The patient is awake, alert, and fully oriented, in no acute distress. HEAD: Normal with no signs of trauma. ENT: posterior pharynx erythematous NECK: Trachea midline, full range of motion, supple. LUNGS: Breath sounds equal, clear to auscultation bilaterally, no wheezes, no crackles, no accessory muscle use. HEART: Regular rate and rhythm, S1, S2 without murmur, rub or gallop. ABDOMEN: Soft, nontender, nondistended, normoactive bowel sounds, no guarding EXTREMITIES: 2+ pulses, warm, well-perfused, no edema. NEUROLOGICAL: Cranial nerves II through XII grossly intact. Normal speech PSYCH: Normal mood, normal affect. SKIN: Warm, dry, normal turgor, no rashes or lesions noted Rectal: no stool in vault, good sphincter tone, no internal hemorrhoids felt, no active bleeding noted, no blood on tip of glove, non-bleeding external hemorrhoid noted Laboratory Results - last 24 hr 11/02/19 11/02/19 07:00 07:00 WBC 4.2 RBC 3.77 Hgb 11.5 Hct 34.0 MCV 90.3 MCH 30.7 MCHC 34.0 RDW 14.0 Plt Count 180 MPV 8.4 Sodium 142 Potassium 3.2 L Chloride 111 H Carbon Dioxide 24 Anion Gap 7 L BUN 3.2 L Creatinine 0.6 Est GFR (CKD-EPI)AfAm 131.22 Est GFR (CKD-EPI)NonAf 113.22 Random Glucose 69 L Hemoglobin A1c % Calcium 8.1 L Phosphorus 3.3 Magnesium 1.9 Total Bilirubin 0.3 AST 30 ALT 32 Alkaline Phosphatase 51 Total Protein 5.6 L Albumin 3.2 L Influenza A (Rapid) Influenza B (Rapid) Group A Strep Rapid Current Medications Acetaminophen (Tylenol -) 650 mg PO Q6H PRN PRN Reason: Fever Or Pain Last Admin: 11/01/19 16:35 Dose: 650 mg Documented by: Benzocaine/Menthol (Cepacol Lozenge -) 1 each MM PRN PRN PRN Reason: SORE THROAT Last Admin: 11/01/19 16:04 Dose: 1 each Documented by: Enoxaparin Sodium (Lovenox -) 40 mg SQ DAILY [facility] Last Admin: 11/02/19 10:25 Dose: 40 mg Documented by: Dextrose/Sodium Chloride (D5-Ns -) 1,000 mls @ 100 mls/hr IV ASDIR [facility] Last Admin: 11/02/19 00:26 Dose: 100 mls/hr Documented by: Levothyroxine Sodium 112 mcg/ (Levothyroxine Sodium 25 mcg) 137 mcg PO DAILY@0700 [facility] Last Admin: 11/02/19 06:23 Dose: 137 mcg Documented by: Oseltamivir Phosphate (Tamiflu -) 75 mg PO BID [facility] Stop: 11/07/19 09:59 Last Admin: 11/02/19 10:26 Dose: 75 mg Documented by: Prochlorperazine Edisylate (Compazine Injection -) 10 mg IVPB Q4H PRN PRN Reason: NAUSEA AND/OR VOMITING ASSESSMENT/PLAN: 39F PMH hypothyroidism, depression who presents to ED with abdominal pain, n/v. pt admitted for Small bowel obstruction. SBO -CT Abdomen pelvis shows multiple dilated small bowel loops are seen within the upper abdomen and pelvis with a 3.4 cm maximum luminal diameter. There is also a somewhat more dilated small bowel loopwith adjacent surgical sutures within the left upper quadrant with a 5 cm diameter. Perigastric surgical sutures are also visualized. The terminal ileum appears unremarkable in caliber. No gross obstructing lesion is identified. There is mild fluid filled distention of the ascending colon. The appendix appears to be partially visualized and demonstrates no gross abnormality. No obvious indirect CT signs of acute appendicitis are noted. Findings suggestive of distal SBO. - XRays show improvement - tolerated clears today, advance as tolerated. tried on solids and pt became nauseous - Surgery consulted- Dr. Diaz Influenza - c/w IVF - Tamiflu - tylenol Hx of Hypothyroidism - continue home dose of synthroid DVT Prophylaxis: Lovenox 40 mg SQ Dispo: med/surg Visit type - Emergency Visit Emergency Visit: No - New Patient This patient is new to me today: No - Critical Care Critical Care patient: No - Discharge Referral Referred to [facility] Med P.C.: No ATTENDING PHYSICIAN STATEMENT I saw and evaluated the patient. I reviewed the resident's note and discussed the case with the resident. I agree with the resident's findings and plan as documented. SUBJECTIVE: OBJECTIVE: ASSESSMENT AND PLAN:
[2019-11-02] MEDS ORDERED: SENNOSIDES 8.6MG TABLET (FP) PO PRN (16:10)
--- NOTE | 2019-11-02 16:28 | PN ---
Progress Note (short form) - Note Progress Note: Surgery Patient being followed for SBO seen and examined at bedside with no complaints. Patient has been tolerating a regular diet is OOB and is moving her bowels and voiding. She denies any CP, SOB, or vomiting. Vital Signs Temp 98.5 F 11/02/19 14:00 Pulse 64 11/02/19 14:00 Resp 20 11/02/19 14:00 BP 107/67 11/02/19 14:00 Pulse Ox 98 11/02/19 09:00 Intake & Output 11/01/19 11/02/19 11/02/19 23:59 11:59 23:59 Intake Total 2750 900 Balance 2750 900 Weight 195 lb Intake: IV 2000 600 D5-Ns - 1,000 ml @ 100 2000 600 mls/hr IV ASDIR JARET Rx#: [id number] IVPB 100 300 Oral 650 Other: Voiding Method Toilet Toilet Toilet # Unmeasured Voids Void 2 1 1 Bowel Movement No Yes # Bowel Movements 1 Height 5 ft 3 in Body Mass Index (BMI) 34.5 CBC, BMP 11/02/19 07:00 11/02/19 07:00 PE: A&Ox3, NAD ABD: soft, ND, NT well healed scars, no rashes/lesions, no masses or no guarding B/L LE compartments soft, supple and non-tender with +2DP pulses. Abd x-ray flat and upright 11/02/19: Air filled loops of small bowel as well as air in the colon. Abdomen less distended from study on 11/01/19 Problem List - Problems (1) SBO (small bowel obstruction) Assessment/Plan: Resolving SBO, patient doing well. No indication for surgical intervention at this time. -Continue diet as tolerated -good bowel regimen -reconsult surgery as needed -f/u with patient's surgeon back in [place] -F/u with Dr Ra YAP Evaluation and plan discussed with Dr Knapp Code(s): K56.609 - UNSP INTESTNL OBST, UNSP TO PARTIAL VERSUS COMPLETE OBST
--- NOTE | 2019-11-02 17:54 | PN ---
Teaching Attending Note Name of Resident: Vicky Cano ATTENDING PHYSICIAN STATEMENT I saw and evaluated the patient. I reviewed the resident's note and discussed the case with the resident. I agree with the resident's findings and plan as documented. SUBJECTIVE: seen in am around 10 am No fever or chills. No MALDONADO. No N/V. tolerated liquid diet. later in afternoon, solid food made her a little uncomfortable but no vomiting. low grade fever this am . still has sore throat. OBJECTIVE: NAD, awake, alert. Erythematous oropharynx with no exudate CV: RRR, no MRG Lungs: CTAB Abd: soft, ND, Nl BS, slightly tender in suprapubic area. EXt: No edema or erythema on upper or lower extremities ASSESSMENT AND PLAN: 39 y/o lady with h/o Anxiety , hypothyroidism, and gastric sleeve sx who presented with Abd pain. N/V and was found to have distal SBO. 1- SBO: KUB reviewed. downgrade diet for today but advance again tomorrow am - KUB in am - Replete K - decrease IVF 2- Influenza A. - cont tamiflu x 5 days ( started 11/01/19 true ) - monitor low grade fever 3- h/o Hypothyroidism: switch to po synthroid Possible dc tomorrow
[2019-11-02] MEDS: DOCUSATE SODIUM 100 MG CAPSULE (FP) PO SCH (18:07)
[2019-11-02] MEDS: ACETAMINOPHEN 325 MG TABLET (FP) PO PRN (23:18)
[2019-11-03] MEDS: DEXTROSE 5%-NORMAL SALINE 1,000 ML IV SCH (03:01)
[2019-11-03] MEDS ORDERED: LEVOTHYROXINE NA 25 MCG TABLET (FP) ONE (06:37)
[2019-11-03] MEDS ORDERED: LEVOTHYROXINE NA 112 MCG TABLET (FP) ONE (06:37)
[2019-11-03] MEDS: LEVOTHYROXINE 112 MCG, LEVOTHYROXINE 25 MCG PO SCH (06:39)
[2019-11-03 09:03] LABS: BLOOD UREA NITROGEN 3.2 mg/dL (7-18); CALCIUM 8.3 mg/dL (8.5-10.1); CREATININE 0.5 mg/dL (0.55-1.3); MAGNESIUM 1.8 mg/dL (1.8-2.4); PHOSPHOROUS 3.9 mg/dL (2.5-4.9); POTASSIUM 4.1 mmol/L (3.5-5.1)
[2019-11-03] MEDS: ENOXAPARIN NA (PORCINE) 40 MG/0.4 ML DISP.SYRIN SQ SCH (10:12)
[2019-11-03] MEDS: OSELTAMIVIR PHOSPHATE 75 MG CAPSULE PO SCH (10:12)
[2019-11-03] MEDS: DOCUSATE SODIUM 100 MG CAPSULE (FP) PO SCH (10:12)
--- NOTE | 2019-11-03 15:36 | PN ---
Teaching Attending Note Name of Resident: Vicky Cano ATTENDING PHYSICIAN STATEMENT I saw and evaluated the patient. I reviewed the resident's note and discussed the case with the resident. I agree with the resident's findings and plan as documented. SUBJECTIVE: Tolerated lunch and breakfast. has cough with yellow sputum. no Abd pain. no N/V. had another BM yesterday. saw a touch of blood with wiping. she reports a bulge of a soft mass through her rectum once in a while. it resolves after few min usually. She denies fever, SOB , or chest pain. OBJECTIVE: NAD, awake, alert. CV: RRR, no MRG Lungs: CTAB No crackles or wheezes Abd: soft, ND, Nl BS, NT. EXt: No edema or erythema on upper or lower extremities. skin : a small external hemorrhoid noted. ASSESSMENT AND PLAN: 39 y/o lady with h/o Anxiety , hypothyroidism, and gastric sleeve sx who presented with Abd pain. N/V and was found to have distal SBO. 1- SBO: improved. tolerated diet. Had a BM. diet at home as tolerated f/u with her surgeon at home , but if she is still here in 1 week, she can see dr. wheeler 2- Influenza A. - cont tamiflu x total of 5 days . - sputum production could be due to viral bronchitis. No crackles on exam, and cxray today with no infiltrates 3- h/o Hypothyroidism: cont synthroid 4- Internal hemorrhoids. occasional bleeding . f/u with GI for possible intervention dc home
[2019-11-03 15:42] VITALS: BP 102/71; PULSE 66; TEMP 98.8
--- NOTE | 2019-11-03 15:53 | DS ---
Physical Exam: SUBJECTIVE: Patient seen and examined at bedside. pt states she is tolerating diet w/o n/v. OBJECTIVE: Vital Signs Period Temp Pulse Resp BP Sys/Faust Pulse Ox Last 24 Hr 98 F-99.2 F 54-66 18-20 102-138/59-74 97-97 PHYSICAL EXAM GENERAL: The patient is awake, alert, and fully oriented, in no acute distress. HEAD: Normal with no signs of trauma. LUNGS: Breath sounds equal, clear to auscultation bilaterally, no wheezes, no crackles, no accessory muscle use. HEART: Regular rate and rhythm, S1, S2 without murmur ABDOMEN: Soft, nontender, nondistended, normoactive bowel sounds, no guarding EXTREMITIES: 2+ pulses, warm, well-perfused, no edema. NEUROLOGICAL: Cranial nerves II through XII grossly intact. Normal speech SKIN: Warm, dry, normal turgor, no rashes or lesions noted. LABS Laboratory Results - last 24 hr 11/03/19 07:05 Sodium 142 Potassium 4.1 Chloride 110 H Carbon Dioxide 26 Anion Gap 6 L BUN 3.2 L Creatinine 0.5 L Est GFR (CKD-EPI)AfAm 139.33 Est GFR (CKD-EPI)NonAf 120.22 Random Glucose 72 L Calcium 8.3 L Phosphorus 3.9 Magnesium 1.8 HOSPITAL COURSE: Date of Admission:10/31/19 39F PMH hypothyroidism, depression who presents to ED with abdominal pain, n/v. pt admitted for Small bowel obstruction. pt had CT Abdomen pelvis shows multiple dilated small bowel loops are seen within the upper abdomen and pelvis with a 3.4 cm maximum luminal diameter. There is also a somewhat more dilated small bowel loopwith adjacent surgical sutures within the left upper quadrant with a 5 cm diameter. Perigastric surgical sutures are also visualized. The terminal ileum appears unremarkable in caliber. No gross obstructing lesion is identified. There is mild fluid filled distention of the ascending colon. The appendix appears to be partially visualized and demonstrates no gross abnormality. No obvious indirect CT signs of acute appendicitis are noted. Findings suggestive of distal SBO. - XRays show improvement - tolerated clears today, advance as tolerated. tried on solids and pt became nauseous - Surgery consulted- Dr. Diaz Influenza - c/w IVF - Tamiflu - tylenol Hx of Hypothyroidism - continue home dose of synthroid DVT Prophylaxis: Lovenox 40 mg SQ Date of Discharge: 11/03/19 Discharge Summary Problems reviewed: Yes Reason For Visit: SMALL BOWEL OBSTRUCTION Current Active Problems Influenza A (Acute) SBO (small bowel obstruction) (Acute) Hypothyroidism (Chronic) Obesity (BMI 30-39.9) (Chronic) Condition: Improved - Instructions Diet, Activity, Other Instructions: You came in for nausea and vomiting. We imaged your abdomen and you were found to have an Small bowel obstruction. We treated you with IVF, pain medications, Gastric Decompression( Naso-gastric tub), and monitored your ability to tolerate foods. A general surgeon assessed you and decided that you did not need surgery as you showed improvement with conservative therapy. You also stated that you had nasal congestion, and cough associated with general malaise. You tested positive for the Flu, we started you on a medication for this. We started you on Docusate (stool softener), to prevent constipation. Please take as directed. Please continue to take Tamiflu 75mg TWICE a day for 6 more doses. Please take your first at home dose at 6pm [facility] (11/03/2019). Please follow up with your PCP within 1 week. Please follow up your Gastroenterogist within 2 weeks to discuss your hemorrhoids. please follow with your surgeon in 1 week. if you are still in the area by then, vist Dr. Fuller Please return to the ED if you are experiencing fever, chills, worsening abdominal pain, constipation lasting longer than 3 days or any other new or worsening problems. avis bleeding form your rectum indicate immediate medical attention. Referrals: Charlie Hernandez DO [Staff Physician] - 3 Weeks Gregorio Mendoza [Staff Physician] - 1 Week Disposition: HOME - Home Medications Comprehensive Discharge Medication List: Ambulatory Orders Fluoxetine HCl [Prozac] 80 mg PO DAILY 10/31/19 Levothyroxine Sodium 1 tab PO DAILY 10/31/19 Docusate Sodium [Colace] 200 mg PO DAILY #30 capsule 11/03/19 Oseltamivir Phosphate [Tamiflu -] 75 mg PO BID #6 capsule 11/03/19 - Discharge Referral Referred to [facility] No ATTENDING PHYSICIAN STATEMENT I saw and evaluated the patient. I reviewed the resident's note and discussed the case with the resident. I agree with the resident's findings and plan as documented. SUBJECTIVE: OBJECTIVE: ASSESSMENT AND PLAN:
== END 2019-11-03 16:57 | disposition home or self-care (01) | DRG 390 ==
LOC: JER 10:57 → JERBED 18:28 → J5S 20:58
PROVIDERS: ADMIT Internal Medicine; ATTEND Internal Medicine
DX: K56.609 Unspecified intestinal obstruction, unspecified as to partial versus complete obstruction (principal); R94.31 Abnormal electrocardiogram [ECG] [EKG]; E66.9 Obesity, unspecified; Z68.34 Body mass index [BMI] 34.0-34.9, adult; E03.9 Hypothyroidism, unspecified; E83.42 Hypomagnesemia; E83.39 Other disorders of phosphorus metabolism; F41.8 Other specified anxiety disorders; J10.1 Influenza due to other identified influenza virus with other respiratory manifestations; K64.8 Other hemorrhoids; Z98.84 Bariatric surgery status
CPT/HCPCS: 36415; 71045-TC-FY; 74018-TC-FY; 74019-TC-FY; 74177-TC; 76705-TC; 80048; 80053; 81003; 82962; 83036; 83605; 83690; 83735; 84100; 84703; 85025; 85027; 85610; 85730; 86850; 86900; 86901; 87040; 87070; 87086; 87804; 87880; 93005; 93010; 99285-25; J0131; J7030; Q9967